=== PATIENT | female | born 2000 | race Caucasian/White ===

== ENCOUNTER 2023-02-19 14:27 | Emergency (ER) | payer MEDICAID ==
[~2023-02-19] VITALS: Ht 167.6 cm; Wt 89.8 kg
[2023-02-19 14:30] VITALS: BP 131/92
[2023-02-19] MEDS ORDERED: FAMO-92 PO (15:29)
--- NOTE | 2023-02-19 16:00 | NUR ---
22 yo/f w c/o epigastric pain x2 years worsening this past week burning like 02/03. denies n/v/d fevers or other symptoms. pmh: denies allergies: denies
[2023-02-19 16:33] VITALS: BP 127/79
--- NOTE | 2023-02-19 16:33 | NUR ---
pt discharged, instructions gievn. pt left w/o signing paper work.
== END 2023-02-19 16:33 | disposition home or self-care (01) ==
LOC: MED 14:27
DX: K21.9 Gastro-esophageal reflux disease without esophagitis (principal); Z79.899 Other long term (current) drug therapy
CPT/HCPCS: 99283